=== PATIENT | male | born 1995 | race African-American/Black ===

== ENCOUNTER 2016-12-21 15:24 | Emergency (ER) | payer OTHER ==
[2016-12-21 15:36] VITALS: BP 122/80; PULSE 60; TEMP 98.6; BMI 24.3
--- NOTE | 2016-12-21 15:49 | PDOC ---
History of Present Illness - General Chief Complaint: Pain Stated Complaint: LEFT SHOULDER PAIN Time Seen by Provider: 12/21/16 15:47 - History of Present Illness Initial Comments: 12/21/16 17:06 Complaint: Left shoulder pain History of present illness: Patient complains of intermittent pain in the left shoulder, superiorly, with certain movements of the arm and shoulder. Present for several weeks after injury wrestling with a friend. Has been trying to exercise the left arm with weights because he feels this pain may be due to weakness of the left arm compared to the right. Review of systems: Denies distal numbness tingling pain or weakness of the forearm wrist or hand. Past medical history: Reviewed and noncontributory Social/family history reviewed and noncontributory Physical exam: Alert and oriented well-developed well-nourished no acute distress cheerful and cooperative Afebrile, vital signs stable Left shoulder shows no sign of deformity or instability. There is full range of motion in abduction, flexion, and extension with no restriction. There is no elicited pain with shoulder motion. Pulses are full. Sensory and motor to the upper extremity normal. No point tenderness over the before meals joint, rotator cuff, or in the axilla. No axillary nodes Impression: Probable rotator cuff tendinitis, chronic. Plan: Patient advised to rest, avoid weight training, demonstrated gentle range of motion exercises, ice, and Motrin. Orthopedic follow-up if no improvement 1- 2 weeks. Fully ambulatory and in no pain or other discomfort upon discharge to follow-up as directed Past History - Past Medical History Allergies/Adverse Reactions: Allergies Allergy/AdvReac Type Severity Reaction Status Date / Time No Known Allergies Allergy Verified 12/21/16 15:25 Home Medications: Ambulatory Orders NK [No Known Home Medication] 12/21/16 Anemia: No Asthma: No Cancer: No Cardiac Disorders: No CVA: No COPD: No CHF: No Dementia: No Diabetes: No GI Disorders: No Disorders: No HTN: No Hypercholesterolemia: No Liver Disease: No Seizures: No Thyroid Disease: No - Surgical History Abdominal Surgery: No Appendectomy: No Cardiac Surgery: No Cholecystectomy: No Lung Surgery: No Neurologic Surgery: No Orthopedic Surgery: No - Psycho/Social/Smoking Cessation Hx Anxiety: No Suicidal Ideation: No Smoking History: Never smoked Have you smoked in the past 12 months: No Information on smoking cessation initiated: No Hx Alcohol Use: No Drug/Substance Use Hx: Yes (MARIJUANA) Substance Use Type: Marijuana Hx Substance Use Treatment: No *Physical Exam - Vital Signs Last Vital Signs Temp Pulse Resp BP Pulse Ox 98.6 F 60 16 122/80 100 12/21/16 15:25 12/21/16 15:25 12/21/16 15:25 12/21/16 15:25 12/21/16 15:25 *DC/Admit/Observation/Transfer Diagnosis at time of Disposition: Shoulder sprain Qualifiers: Encounter type: initial encounter Shoulder sprain type: rotator cuff capsule Laterality: left Qualified Code(s): S43.422A - Sprain of left rotator cuff capsule, initial encounter - Discharge Dispostion Disposition: HOME Condition at time of disposition: Stable Admit: No - Referrals Referrals: John Banks MD [Staff Physician] - 14 days - Patient Instructions Printed Discharge Instructions: DI for Shoulder Sprain Additional Instructions: Rest, discontinue exercising with weights. Gentle range of motion stretching exercises as demonstrated today Julián and Lashanda See wound care specialist if no improvement 1-2 weeks.
== END 2016-12-21 16:10 | disposition home or self-care (01) ==
LOC: FER 15:24
DX: S43.422A Sprain of left rotator cuff capsule, initial encounter (principal); X58.XXXA Exposure to other specified factors, initial encounter; Y93.89 Activity, other specified; Y92.9 Unspecified place or not applicable
CPT/HCPCS: 99281-25

== ENCOUNTER 2024-04-11 02:28 | Emergency (ER) | payer OTHER ==
[2024-04-11 02:39] VITALS: BP 127/88; PULSE 61; RESP 16; TEMP 98.7; BMI 23.2
[2024-04-11] MEDS ORDERED: KETOROLAC TROMETHAMINE 60 MG/2 ML VIAL ONE (02:45)
[2024-04-11] MEDS ORDERED: CYCLOBENZAPRINE HCL 5 MG TABLET ONE (02:46)
[2024-04-11] MEDS: KETOROLAC TROMETHAMINE 60 MG/2 ML VIAL IM ONE (02:52)
[2024-04-11] MEDS: CYCLOBENZAPRINE HCL 10 MG TABLET (FP) PO ONE (02:52)
== END 2024-04-11 03:16 | disposition home or self-care (01) ==
LOC: FER 02:28
PROC: 3E0133Z Introduction of Anti-inflammatory into Subcutaneous Tissue, Percutaneous Approach (ICD-10-PCS; principal; 2024-04-11)
DX: M54.9 Dorsalgia, unspecified (principal)
CPT/HCPCS: 99284-25

== ENCOUNTER 2024-04-15 10:57 | Emergency (ER) | payer OTHER ==
[2024-04-15 11:27] VITALS: BP 130/89; PULSE 68; RESP 16; TEMP 97.3; BMI 23.6
[2024-04-15] MEDS ORDERED: KETOROLAC TROMETHAMINE 30 MG/1 ML VIAL ONE (11:41)
[2024-04-15] MEDS ORDERED: diazePAM 2 MG TABLET ONE (11:41)
[2024-04-15] MEDS: KETOROLAC TROMETHAMINE 30 MG/1 ML VIAL IM ONE (11:48)
[2024-04-15] MEDS: diazePAM 2 MG TABLET PO ONE (11:49)
== END 2024-04-15 12:26 | disposition home or self-care (01) ==
LOC: FER 10:57
PROC: 3E0133Z Introduction of Anti-inflammatory into Subcutaneous Tissue, Percutaneous Approach (ICD-10-PCS; principal; 2024-04-15)
DX: M54.2 Cervicalgia (principal); R51.9 Headache, unspecified; X50.1XXA Overexertion from prolonged static or awkward postures, initial encounter; Y99.0 Civilian activity done for income or pay
CPT/HCPCS: 99284-25